=== PATIENT | female | born 1980 | race African-American/Black ===

== ENCOUNTER → 2016-03-28 | Emergency (ER) | payer SELFPAY ==
[~2016-03-28] VITALS: Ht 170.2 cm; Wt 75.7 kg
[~2016-03-28] MED LIST: COLACE100 MG ORAL; IBUPROFEN400 MG ORAL; Ketorolac 60mg Inj IM ONE; TYLENOL EXTRA500 MG ORAL
[2016-03-28 14:01] VITALS: BP 106/68
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
[2016-03-28 16:17] VITALS: BP 106/68
--- NOTE | 2016-03-30 09:35 | Diagnostic Imaging Report ---
Indication: PAIN Technique: Multiple views of the nasal bones Comparison: None Findings: No acute fractures. Nasal septum is intact. Included sinuses are grossly unremarkable. Impression: Negative
== END | disposition home or self-care (01) ==
LOC: EMR 14:30
DX: S00.33XA Contusion of nose, initial encounter (principal); K59.00 Constipation, unspecified; W22.8XXA Striking against or struck by other objects, initial encounter; Y92.9 Unspecified place or not applicable; Y99.8 Other external cause status
CPT/HCPCS: 70160; 96374; 99284

== ENCOUNTER 2016-05-30 16:20 | Emergency (ER) | payer SELFPAY ==
[~2016-05-30] VITALS: Ht 170.2 cm; Wt 75.7 kg
[~2016-05-30 16:20] MED LIST changes: -Ketorolac 60mg Inj IM ONE
[2016-05-30] MEDS ORDERED: Norco 5mg/325mg tab ORAL ONE (17:15)
[2016-05-30] MEDS ORDERED: ROBAXIN-750750 MG PO (18:37)
[2016-05-30] MEDS ORDERED: IBUPROFEN600 MG ORAL (18:37)
[2016-05-30 18:50] VITALS: BP 101/70
--- NOTE | 2016-05-31 09:58 | Diagnostic Imaging Report ---
Indication: PAIN Technique: Multiple views of the right ribs Comparison: None Findings: No acute fractures. No pneumothorax. Lungs and pleural spaces are clear. There are cholecystectomy clips Impression: Negative
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
== END 2016-05-30 18:50 | disposition home or self-care (01) ==
LOC: EMR 17:29
DX: M54.5 Low back pain (principal); R07.9 Chest pain, unspecified; T14.8 Other injury of unspecified body region; Z90.49 Acquired absence of other specified parts of digestive tract; V43.62XA Car passenger injured in collision with other type car in traffic accident, initial encounter; Y93.9 Activity, unspecified; Y92.410 Unspecified street and highway as the place of occurrence of the external cause
CPT/HCPCS: 99283

== ENCOUNTER 2017-01-15 20:11 | Emergency (ER) | payer OTHER ==
[~2017-01-15] VITALS: Ht 170.2 cm; Wt 81.6 kg
[~2017-01-15 20:11] MED LIST changes: +IBUPROFEN600 MG ORAL; +ROBAXIN-750750 MG PO
[2017-01-15 20:26] VITALS: BP 128/90
[2017-01-15] MEDS ORDERED: Ketorolac 60mg Inj IM ONE (20:30)
[2017-01-15] MEDS ORDERED: Tylenol #3 tab (300mg/30mg) ORAL ONE (20:30)
[2017-01-15] MEDS ORDERED: ACETAMINOPHEN-1 EAC1 ORAL (21:05)
[2017-01-15] MEDS ORDERED: IBUPROFEN800 MG ORAL (21:05)
--- NOTE | 2017-01-15 21:20 | Emergency Room Report ---
History of Present Illness General Chief Complaint: Chest Pain Source: Patient Present Illness HPI 36YOF walks in with pleuritic chest pain for 2-3 days Associated with recent URI symptoms No fever/chills, chest pain, SOB No asthma, COPD, CHF History of smoking marijuna No history of PE in self or family Allergies: Coded Allergies: No Known Allergies (Unverified , 03/28/16) Patient History Past Medical History: none Past Surgical History: none Pertinent Family History: none Social History: Reports: smoking, drug use Last Menstrual Period: 3 weeks ago Now: No Immunizations: UTD Reviewed Nursing Documentation: PMH: Agreed, PSxH: Agreed Nursing Documentation-PMH Past Medical History: No Stated History Review of Systems All Other Systems: negative except mentioned in HPI Physical Exam Vital Signs Date Time Temp Pulse Resp B/P (MAP) Pulse Ox O2 Delivery O2 Flow Rate FiO2 01/15/17 20:14 98.4 96 18 128/90 98 Room Air 01/15/17 20:26 98 Sp02 EP Interpretation: reviewed, normal General Appearance: normal inspection, well appearing, no apparent distress, alert, GCS 15, non-toxic Head: normocephalic, atraumatic Eyes: bilateral eye PERRL, bilateral eye EOMI ENT: normal ENT inspection, hearing grossly normal, normal voice Neck: normal inspection, full range of motion, supple, no bony tend Respiratory: normal inspection, lungs clear, normal breath sounds, no respiratory distress, no retraction, no wheezing, chest symmetrical, palpation of chest normal Cardiovascular #1: regular rate, rhythm, no edema Gastrointestinal: normal inspection, normal bowel sounds, non tender, soft, no guarding, no hernia Genitourinary: no CVA tenderness Musculoskeletal: normal inspection, back normal, normal range of motion, Elisabeth' s Sign negative Neurologic: normal inspection, alert, oriented x3, responsive, cheese tester III-XII nml as tested, speech normal Psychiatric: normal inspection, judgement/insight normal, mood/affect normal Skin: normal inspection, normal color, no rash Medical Decision Making Diagnostic Impression: Primary Impression: Chest pain Qualified Codes: R07.81 - Pleurodynia ER Course 36yof female with 2-3 days of pleuritic chest pain EKG does not demonstrate ischemia or pericarditis pattern Chest x-ray negative for pneumonia, pneumothorax Symptoms improved with IM Toradol and Tylenol with Codeine Unlikely ACS or PE given well appearance, stable vital signs, afebrile, and no CAD risk factors ER course: Patient has remained stable during ED stay. Patient is to be discharged to home. Prescriptions given are motrin, t#3 Patient is instructed to follow up with their primary care doctor within 5 days. Strict return precautions discussed with patient such as fever, chills, worsening/severe pain, nausea, vomiting, which may indicate severe illness. Patient verbalizes understanding and agrees with plan. Please note that this Emergency Department Report was dictated using [employer] intern technology software, occasionally this can lead to erroneous entry secondary to interpretation by the dictation equipment EKG Diagnostic Results Rate: normal Rhythm: NSR ST Segments: no acute changes ASA given to the pt in ED: No Chest X-Ray Diagnostic Results Chest X-Ray Diagnostic Results : Chest X-Ray Ordered: Yes # of Views/Limited/Complete: 1 View Indication: Chest Pain EP Interpretation: Yes Interpretation: no consolidation, no effusion, no pneumothorax, no acute cardiopulmonary disease Impression: No acute disease Electronically Signed by: Dr Abel Sarmiento MD Last Vital Signs Date Time Temp Pulse Resp B/P (MAP) Pulse Ox O2 Delivery O2 Flow Rate FiO2 01/15/17 20:26 96 18 Room Air 98 01/15/17 20:26 98.4 128/90 98 Status: improved Disposition: HOME, SELF-CARE Condition: Improved Scripts Acetaminophen With Codeine (T#3) (TYLENOL #3 TAB*) Y Tab 1 TAB ORAL Q8H for Severe Breakthru Pain (>7) for 7 Days, #20 TAB Prov: ABEL SARMIENTO M.D. 01/15/17 Ibuprofen* (MOTRIN*) 800 Mg Tablet 800 MG ORAL THREE TIMES A DAY for 7 Days, #30 TAB 0 Refills Prov: ABEL SARMIENTO M.D. 01/15/17 Referrals: PREFERRED [facility],REFERRING (PCP) Patient Instructions: Costochondritis, [id number] Additional Instructions: - Take motrin as needed up to 3x a day for chest wall pain - Take Tylenol #3 for severe pain - Followup with your doctor in 2-3 days if no improvement ABEL SARMIENTO M.D. Jan 15, 2017 21:20
[2017-01-15 21:25] VITALS: BP 128/90
--- NOTE | 2017-01-18 11:01 | Cardiology Report ---
APPROVED REPORT EKG Measurement Heart [id number] NV 112P [id number] Normal sinus rhythm Normal ECG
--- NOTE | 2017-01-18 11:02 | Diagnostic Imaging Report ---
Indication: SOB Technique: One view of the chest Comparison: none Findings: Lungs and pleural spaces are clear. Heart size is normal. Impression: No acute process
== END 2017-01-15 21:25 | disposition home or self-care (01) ==
LOC: EMR 20:48
DX: R07.81 Pleurodynia (principal); F17.200 Nicotine dependence, unspecified, uncomplicated; F19.10 Other psychoactive substance abuse, uncomplicated
CPT/HCPCS: 71010; 93005; 96372; 99284

== ENCOUNTER 2017-07-26 12:50 | Emergency (ER) | payer OTHER ==
[~2017-07-26] VITALS: Ht 170.2 cm; Wt 78.0 kg
[~2017-07-26 12:50] MED LIST changes: +ACETAMINOPHEN-1 EAC1 ORAL; +IBUPROFEN800 MG ORAL
[2017-07-26 13:00] VITALS: BP 110/74
[2017-07-26] MEDS ORDERED: NKM (13:01)
[2017-07-26] MEDS ORDERED: NORCO 5-325 TA1 EACH ORAL (13:17)
[2017-07-26] MEDS ORDERED: OMEPRAZOLE20 M2 ORAL (13:17)
[2017-07-26] MEDS ORDERED: BACTRIM DS TAB1 EAC1 ORAL (13:17)
--- NOTE | 2017-07-26 13:33 | Emergency Room Report ---
History of Present Illness General Chief Complaint: Skin Rash/Abscess Source: Patient Present Illness HPI Patient 36-year-old female presented after increased rash to her buttocks. Patient reported having increased the swelling and pain to the right butt cheek. This been present for several days. Patient denied any fever.The patient reports having the additionally some right upper abdominal pain. She denies any vomiting. She reports having a recent heavy alcohol use. She denies any hematemesis or bloody stools. Allergies: Coded Allergies: No Known Allergies (Unverified , 03/28/16) Patient History Past Medical History: see triage record Now: No Nursing Documentation-[facility] Past Medical History: No History, Except For Review of Systems All Other Systems: negative except mentioned in HPI Physical Exam Vital Signs Date Time Temp Pulse Resp B/P (MAP) Pulse Ox O2 Delivery O2 Flow Rate FiO2 07/26/17 12:54 97.6 84 19 110/74 98 Room Air 97.5 Sp02 EP Interpretation: reviewed, normal General Appearance: normal inspection, well appearing, no apparent distress, alert, GCS 15 Head: atraumatic ENT: normal ENT inspection, hearing grossly normal, normal voice Neck: normal inspection, full range of motion, supple, no bony tend Respiratory: normal inspection, lungs clear, normal breath sounds, no respiratory distress, no retraction, no wheezing Cardiovascular #1: regular rate, rhythm, no edema Gastrointestinal: normal inspection, normal bowel sounds, non tender, soft, no guarding, no hernia Genitourinary: no CVA tenderness Musculoskeletal: normal inspection, back normal, normal range of motion Neurologic: normal inspection, alert, oriented x3, responsive, glove stitcher III-XII nml as tested, speech normal Psychiatric: normal inspection, judgement/insight normal, mood/affect normal Skin: normal inspection, normal color, no rash Medical Decision Making Diagnostic Impression: Primary Impression: Infected insect bite of buttock Additional Impression: Gastritis without bleeding ER Course Patient presented for skin rash. Differential diagnosis included was not limited to abscess, cellulitis, folliculitis, Fourniere's gangrene, gonorrhea. Patient has a benign exam and does not appear to require any further imaging or laboratory testing at this time. The patient was given prescription for empiric treatment of likely staph infection. The patient was advised to have wound rechecked in 2 days. The patient was given prescription for pain medication. She is advised to follow-up with primary care physician for further evaluation.Patient presented for skin rash. The patient is advised to follow up with primary care doctor in 1-2 days. Patient is advised to return if any worsening condition or if any changes in status that are concerning. This report is dictated with [email or web address] systems planner software which may occasionally lead to discrepancies related to use of this software. Labs Test 07/26/17 13:25 Urine Color Yellow Urine Appearance Slightly cloudy Urine pH 5 (4.5-8.0) Urine Specific [place] 1.020 (1.005-1.035) Urine Protein 1+ (NEGATIVE) Urine Glucose (UA) Negative (NEGATIVE) Urine Ketones Negative (NEGATIVE) Urine Occult Blood 4+ (NEGATIVE) Urine Nitrite Negative (NEGATIVE) Urine Bilirubin Negative (NEGATIVE) Urine Urobilinogen Normal MG/DL (0.0-1.0) Urine Leukocyte Esterase Negative (NEGATIVE) Urine RBC 15-20 /HPF (0 - 2) Urine WBC 2-4 /HPF (0 - 2) Urine Squamous Epithelial Cells Many /LPF (NONE/OCC) Urine Bacteria Few /HPF (NONE) Urine HCG, Qualitative Negative (NEGATIVE) Last Vital Signs Date Time Temp Pulse Resp B/P (MAP) Pulse Ox O2 Delivery O2 Flow Rate FiO2 07/26/17 12:54 97.6 84 19 110/74 98 Room Air 97.5 Status: improved Disposition: HOME, SELF-CARE Condition: Stable Scripts Omeprazole (OMEPRAZOLE) 20 Mg Capsule.dr 20 MG ORAL DAILY, #14 CAP Prov: Eddie Enriquez MD 07/26/17 Trimethoprim/Sulfamethoxazole 160/800* (BACTRIM DS TABLET*) 1 Each Tablet 1 TAB ORAL Q12H, #14 TAB 0 Refills Prov: Eddie Enriquez MD 07/26/17 Hydrocodone Bit/Acetaminophen 5-325* (NORCO 5-325*) 1 Each Tablet 1 TAB ORAL Q6H PRN for For Pain, #10 TAB 0 Refills Prov: Eddie Enriquez MD 07/26/17 Patient Instructions: Staphylococcal Infection, Insect Bite Eddie Enriquez MD Jul 26, 2017 13:33
[2017-07-26 13:49] LABS: APPEARANCE,URINE SLIGHTLY CLOUDY; BILIRUBIN, URINE NEGATIVE (NEGATIVE); GLUCOSE, URINE (UA) NEGATIVE (NEGATIVE); KETONES,URINE NEGATIVE (NEGATIVE); NITRITE,URINE NEGATIVE (NEGATIVE); UROBILINOGEN,URINE NORMAL MG/DL (0.0-1.0)
[2017-07-26 13:53] LABS: COLOR,URINE YELLOW
[2017-07-26 13:54] LABS: PH,URINE 5 (4.5-8.0); PROTEIN,URINE 1+ (NEGATIVE)
[2017-07-26 13:55] LABS: LEUKOCYTE ESTERASE ,URINE NEGATIVE (NEGATIVE)
[2017-07-26 14:24] VITALS: BP 108/74
== END 2017-07-26 14:28 | disposition home or self-care (01) ==
LOC: EMR 13:53
DX: S30.860A Insect bite (nonvenomous) of lower back and pelvis, initial encounter (principal); L08.9 Local infection of the skin and subcutaneous tissue, unspecified; K29.70 Gastritis, unspecified, without bleeding; W57.XXXA Bitten or stung by nonvenomous insect and other nonvenomous arthropods, initial encounter; Y92.9 Unspecified place or not applicable
CPT/HCPCS: 81003; 81025; 99284

== ENCOUNTER 2017-12-04 17:53 | Emergency (ER) | payer OTHER ==
[~2017-12-04] VITALS: Ht 200.7 cm; Wt 82.6 kg
[~2017-12-04 17:53] MED LIST changes: +BACTRIM DS TAB1 EAC1 ORAL; +NKM; +NORCO 5-325 TA1 EACH ORAL; +OMEPRAZOLE20 M2 ORAL
[2017-12-04 18:08] VITALS: BP 109/67
[2017-12-04] MEDS ORDERED: TYLENOL EXTRA500 MG ORAL (18:30)
[2017-12-04] MEDS ORDERED: CEPHALEXIN500 MG ORAL (18:30)
[2017-12-04] MEDS ORDERED: BACTRIM DS TAB1 EAC1 ORAL (18:30)
--- NOTE | 2017-12-04 18:31 | Emergency Room Report ---
History of Present Illness General Chief Complaint: Skin Rash/Abscess Source: Patient Present Illness HPI 37-year-old female patient presents ER complaining of bump on her left buttock. Reports "I think I have another abscess". Reports history of similar symptoms in the past. Reports bump is been present for 3 days. Reports began draining today following a hydrogen peroxide bath. Denies fever, chest pain, shortness breath, vomiting. Denies pain with bowel movements. Denies pain with walking. Reports tenderness to palpation. Denies dysuria. Denies diarrhea or constipation. Allergies: Coded Allergies: No Known Allergies (Unverified , 03/28/16) Patient History Past Medical History: see triage record Reviewed Nursing Documentation: PMH: Agreed; PSxH: Agreed Nursing Documentation-PMH Past Medical History: No History, Except For Review of Systems All Other Systems: negative except mentioned in HPI Physical Exam Vital Signs Date Time Temp Pulse Resp B/P (MAP) Pulse Ox O2 Delivery O2 Flow Rate FiO2 12/04/17 18:03 98.4 83 18 109/67 98 Room Air Sp02 EP Interpretation: reviewed, normal General Appearance: well appearing, no apparent distress, alert, GCS 15, non- toxic Head: normocephalic, atraumatic Eyes: bilateral eye normal inspection, bilateral eye PERRL ENT: hearing grossly normal, normal pharynx, no angioedema, normal voice, uvula midline, moist mucus membranes Neck: full range of motion Respiratory: lungs clear, normal breath sounds, no rhonchi, no respiratory distress, no accessory muscle use, no wheezing, speaking full sentences Cardiovascular #1: regular rate, rhythm, no edema Musculoskeletal: back normal, digits/nails normal, gait/station normal, normal range of motion, non-tender Neurologic: alert, oriented x3, responsive, motor strength/tone normal, sensory intact Psychiatric: mood/affect normal Skin: other - left mid buttock: 1 cm abscess with drainage, overlying erythema and edema, indurated, pus draining, no red streaking Medical Decision Making PA Attestation Dr. Enriquez is my supervising Physician whom patient management has been discussed with. Diagnostic Impression: Primary Impression: Abscess ER Course Pt. presents to the ED c/o bump on left buttock for 3 days. Ddx considered but are not limited to rash, cellulitis, abscess, sebaceous cyst , carbuncle, folliculitis, fistula. Does not require imaging at this time. Vital signs: are WNL, pt. 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 Does not require I and D at this time. Wound cleaned and dressed. Provide patient with antibiotics and discharged home. Continue sitz baths. Take Tylenol for pain. ER precautions given. Follow-up with primary care provider in 2-3 days for wound check or return to the ER. DISCHARGE: -Rx provided for Keflex -Rx provided for Bactrim to cover for MRSA -Rx provided for Tylenol At this time pt. is stable for d/c to home. Patient is resting comfortably, in no acute distress, nontoxic appearing. Will provide printed patient care instructions and any necessary prescriptions. Care plan and follow up instructions have been discussed with the patient prior to discharge. Patient instructed to follow-up with primary care provider in 2 - 3 days for wound recheck. Patient questions asked and answered. Patient reports understanding and agreement to treatment plan. ER precautions given. Patient instructed to return to ER immediately for any new or worsening of symptoms including but not limited to fever, worsening of pain symptoms, worsening of erythema, red streaking. - Please note that this Emergency Department Report was dictated using [employer] technology software, occasionally this can lead to erroneous entry secondary to interpretation by the dictation equipment. Last Vital Signs Date Time Temp Pulse Resp B/P (MAP) Pulse Ox O2 Delivery O2 Flow Rate FiO2 12/04/17 18:08 98.4 83 18 109/67 98 Room Air Disposition: HOME, SELF-CARE Condition: Stable Scripts Trimethoprim/Sulfamethoxazole 160/800* (BACTRIM DS TABLET*) 1 Each Tablet 1 TAB ORAL TWICE A DAY for 7 Days, #14 TAB Prov: Obed Crocker P.A. 12/04/17 Acetaminophen* (TYLENOL EXTRA STRENGTH*) 500 Mg Tablet 500 MG ORAL Q8H PRN for Prn Headache/Temp > 101, #30 TAB 0 Refills Prov: Obed Crocker P.A. 12/04/17 Cephalexin* (KEFLEX*) 500 Mg Capsule 500 MG ORAL EVERY 12 HOURS, #14 CAP 0 Refills Prov: Obed Crocker P.A. 12/04/17 Patient Instructions: Abscess Additional Instructions: Followup with PCP or return to ER in 2-3 days for wound check. Take medications as instructed. Patient questions asked and answered. Apply warm compresses to affected area. SITZ baths. Keep wound clean and dry. ER precautions given. Return to ER for new or worsening of symptoms including but not limited to chest pain, SOB, red streaking, worsening of abscess, intractable vomiting, pain with bowel movements or walking. Obed Crocker Dec 04, 2017 18:31
[2017-12-04 18:37] VITALS: BP 109/67
== END 2017-12-04 18:40 | disposition home or self-care (01) ==
LOC: EMR 18:28
DX: L02.31 Cutaneous abscess of buttock (principal)
CPT/HCPCS: 99283

== ENCOUNTER 2017-12-29 18:03 | Emergency (ER) | payer OTHER ==
[~2017-12-29] VITALS: Ht 170.2 cm; Wt 81.6 kg
[~2017-12-29 18:03] MED LIST changes: +CEPHALEXIN500 MG ORAL
[2017-12-29 18:28] VITALS: BP 110/66
[2017-12-29] MEDS ORDERED: Mylanta II UD 30ml ORAL ONE (18:30)
[2017-12-29 18:31] LABS: APPEARANCE,URINE SLIGHTLY CLOUDY; BILIRUBIN, URINE 2+ (NEGATIVE); GLUCOSE, URINE (UA) NEGATIVE (NEGATIVE); KETONES,URINE NEGATIVE (NEGATIVE); LEUKOCYTE ESTERASE ,URINE 3+ (NEGATIVE); NITRITE,URINE POSITIVE (NEGATIVE); PH,URINE 6 (4.5-8.0); PROTEIN,URINE 1+ (NEGATIVE); UROBILINOGEN,URINE 8 MG/DL (0.0-1.0)
[2017-12-29 18:34] LABS: COLOR,URINE YELLOW
--- NOTE | 2017-12-29 18:51 | Emergency Room Report ---
History of Present Illness General Chief Complaint: Female Urogenital Problems Source: Patient Present Illness HPI 37 Yo Female presents to the ED c/o dysuria and bladder fullness with urgency x 5 days. Pt. has taken OTC AZO x 2 days without relief. pt. Denies and reports LMP was last week. pt. denies hematuria or frequency otherwise. Denies fevers, chills, nausea,vomiting, constipation or diarrhea. Pt. reports being really "gassy" since yesterday. Denies vaginal d/c, rashes or recent unprotected intercourse. Pt. reports recent abx use 1 month ago for abscess on her buttock. pt. denies itching. Allergies: Coded Allergies: No Known Allergies (Unverified , 03/28/16) Patient History Past Medical History: see triage record Past Surgical History: none Pertinent Family History: none Last Menstrual Period: LAST WEEK Now: No Reviewed Nursing Documentation: PMH: Agreed; PSxH: Agreed Nursing Documentation-PMH Past Medical History: No Stated History Review of Systems All Other Systems: negative except mentioned in HPI Physical Exam Vital Signs Date Time Temp Pulse Resp B/P (MAP) Pulse Ox O2 Delivery O2 Flow Rate FiO2 12/29/17 18:04 80.1 95 16 118/80 96 Room Air Sp02 EP Interpretation: reviewed, normal General Appearance: no apparent distress, alert, GCS 15, non-toxic Head: normocephalic, atraumatic Eyes: bilateral eye normal inspection, bilateral eye PERRL ENT: hearing grossly normal, normal voice Neck: full range of motion Respiratory: lungs clear, normal breath sounds, speaking full sentences Cardiovascular #1: regular rate, rhythm Gastrointestinal: normal bowel sounds, non tender, soft, non-distended, no guarding Rectal: deferred Genitourinary: normal inspection, no CVA tenderness, adnexa normal Musculoskeletal: back normal, gait/station normal, normal range of motion, non- tender Neurologic: alert, oriented x3, responsive, motor strength/tone normal, sensory intact, normal gait, speech normal, grossly normal Psychiatric: judgement/insight normal Skin: normal color, no rash, warm/dry, well hydrated Lymphatic: no adenopathy Medical Decision Making PA Attestation Dr. Valencia is my supervising Physician whom patient management has been discussed with. Diagnostic Impression: Primary Impression: UTI (urinary tract infection) Qualified Codes: N30.01 - Acute cystitis with hematuria Additional Impression: Trichomonal infection ER Course 37 Yo Female presents to the ED c/o dysuria and bladder fullness with urgency x 5 days. Pt. has taken OTC AZO x 2 days without relief. pt. Denies and reports LMP was last week. pt. denies hematuria or frequency otherwise. Denies fevers, chills, nausea,vomiting, constipation or diarrhea. Pt. reports being really "gassy" since yesterday. Denies vaginal d/c, rashes or recent unprotected intercourse. Pt. reports recent abx use 1 month ago for abscess on her buttock. pt. denies itching. Ddx considered but are not limited to UTi , Pyelo, STI, Stone, Cystitis Vital signs: are WNL, pt. is afebrile H&PE are most consistent with UTI ORDERS: - UA labs are attached - NITRITE POSITIVE + TRICHOMONAS ED INTERVENTIONS: -Dilcia Posada DISCHARGE: At this time pt. is stable for d/c to home. Will provide printed patient care instructions, and any necessary prescriptions. Care plan and follow up instructions have been discussed with the patient prior to discharge. Labs Test 12/29/17 18:25 Urine Color Yellow Urine Appearance Slightly cloudy Urine pH 6 (4.5-8.0) Urine Specific [place] 1.015 (1.005-1.035) Urine Protein 1+ (NEGATIVE) Urine Glucose (UA) Negative (NEGATIVE) Urine Ketones Negative (NEGATIVE) Urine Blood 3+ (NEGATIVE) Urine Nitrite Positive (NEGATIVE) Urine Bilirubin 2+ (NEGATIVE) Urine Ictotest Negative (NEGATIVE) Urine Urobilinogen 8 MG/DL (0.0-1.0) Urine Leukocyte Esterase 3+ (NEGATIVE) Urine RBC 10-15 /HPF (0 - 2) Urine WBC 20-30 /HPF (0 - 2) Urine Squamous Epithelial Cells Many /LPF (NONE/OCC) Urine Bacteria Many /HPF (NONE) Urine Trichomonas Moderate /HPF (NONE) Urine HCG, Qualitative Negative (NEGATIVE) Last Vital Signs Date Time Temp Pulse Resp B/P (MAP) Pulse Ox O2 Delivery O2 Flow Rate FiO2 12/29/17 18:28 98.4 81 16 110/66 100 Room Air Disposition: HOME, SELF-CARE Condition: Stable Scripts Metronidazole* (FLAGYL*) 500 Mg Tablet 500 MG ORAL BID for 5 Days, #10 TAB 0 Refills Prov: Amisha Pinto 12/29/17 Trimethoprim/Sulfamethoxazole 160/800* (BACTRIM DS TABLET*) 1 Each Tablet 1 TAB ORAL TWICE A DAY for 7 Days, #14 TAB Prov: Amisha Pinto 12/29/17 Referrals: [facility],REFERRING (PCP) Patient Instructions: Trichomonas Test, Urinary Tract Infection Additional Instructions: Take medications as directed. ! Do not drink alcohol while taking Flagyl/Metronidazole as this will cause a skin reaction. Follow up with a Primary Care Provider in 3-5 days, even if your symptoms have resolved. --Please review list of primary care clinics, if you do not already have a primary care provider Return sooner to ED if new symptoms occur, or current symptoms become worse. - Please note that this Emergency Department Report was dictated using [employer] photographer technology software, occasionally this can lead to erroneous entry secondary to interpretation by the dictation equipment. Amisha Pinto Dec 29, 2017 18:51
[2017-12-29] MEDS ORDERED: METRONIDAZOLE500 MG ORAL (19:01)
[2017-12-29] MEDS ORDERED: BACTRIM DS TAB1 EAC1 ORAL (19:01)
[2017-12-29 19:25] VITALS: BP 110/66
== END 2017-12-29 19:26 | disposition home or self-care (01) ==
LOC: EMR 18:25
DX: N39.0 Urinary tract infection, site not specified (principal); A59.9 Trichomoniasis, unspecified
CPT/HCPCS: 81003; 81025; 87086; 99283

== ENCOUNTER 2018-03-27 07:18 | Emergency (ER) | payer OTHER ==
[~2018-03-27] VITALS: Ht 170.2 cm; Wt 81.6 kg
[~2018-03-27 07:18] MED LIST changes: +METRONIDAZOLE500 MG ORAL
--- NOTE | 2018-03-27 07:48 | NUR ---
ED Nurse Note: Pt came into the Er w/ complaints of bodyaches, headache, coughing, and chills x 3 days. Pt has no fever upon arrival. Pt is complaining of generalized body pain and rating the pain a 7/10. A + O x4. Ambulatory. Skin warm to touch.
[2018-03-27 07:49] VITALS: BP 120/77
[2018-03-27] MEDS ORDERED: Acetaminophen 500mg (ES) tab ORAL ONE (08:00)
[2018-03-27] MEDS ORDERED: Ipratropium 0.02% Inh Soln 2.5ml UD HHN ONE (08:00)
[2018-03-27] MEDS: Albuterol ud Inhalation HHN SCH ×3 (08:04→08:30)
--- NOTE | 2018-03-27 08:06 | Emergency Room Report ---
History of Present Illness General Chief Complaint: Flu Like Symptoms Source: Patient Present Illness HPI Patient presents with 3 days of illness. She has a sore throat, muscle aches, cough with wheezing. She is producing green phlegm. She did not receive a flu vaccination. In addition she smokes. She's complaining about back pain also. Her back is aching and she has muscle aches. She denies any vomiting or diarrhea. She rates the pain 8/10 mainly in her body. She states she's never used an inhaler in the past. In addition she has an area under her left arm in the axilla. That's red and swollen. There is no drainage there. Her son has a sore throat. No nausea, vomiting, diarrhea, dysuria, headache, depression. Allergies: Coded Allergies: No Known Allergies (Unverified , 03/28/16) Patient History Past Medical History: see triage record Social History: Reports: smoking Social History Narrative With son and daughter Last Menstrual Period: 03/20/18 Reviewed Nursing Documentation: PMH: Agreed; PSxH: Agreed Nursing Documentation-PMH Past Medical History: No History, Except For Review of Systems All Other Systems: negative except mentioned in HPI Physical Exam Vital Signs Date Time Temp Pulse Resp B/P (MAP) Pulse Ox O2 Delivery O2 Flow Rate FiO2 03/27/18 07:31 97.7 70 18 121/76 98 Room Air 03/27/18 07:49 98 Sp02 EP Interpretation: reviewed, normal General Appearance: well appearing, no apparent distress, GCS 15 Head: normocephalic Eyes: bilateral eye normal inspection, bilateral eye PERRL ENT: moist mucus membranes, pharyngeal erythema Neck: supple Respiratory: wheezing - Posttussive Cardiovascular #1: regular rate, rhythm Cardiovascular #2: 2+ radial (R) Gastrointestinal: normal inspection, normal bowel sounds, non tender, no mass, non-distended Musculoskeletal: back normal, gait/station normal, normal range of motion Neurologic: alert, oriented x3, grossly normal Psychiatric: mood/affect normal Skin: normal inspection, warm/dry, other - Axillary erythema and nodularity without fluctuance Medical Decision Making Diagnostic Impression: Primary Impression: Asthmatic bronchitis Qualified Codes: J45.41 - Moderate persistent asthma with (acute) exacerbation Additional Impressions: Cellulitis, axillary fold Tobacco abuse ER Course Patient presents with sore throat, wheezing, productive cough. Differential includes asthmatic bronchitis, pneumonia, influenza amongst others. Based on her vital signs pneumonia is less likely. Influenza swab is indicated as well as albuterol. Patient will be given Tylenol also She also has an axillary if area of inflammation there is no fluctuance the area and antibiotics are indicated. Patient is improved after albuterol. Influenza negative. Patient improved with treatment in stable for outpatient observation and treatment. She was advised to stop smoking. Last Vital Signs Date Time Temp Pulse Resp B/P (MAP) Pulse Ox O2 Delivery O2 Flow Rate FiO2 03/27/18 10:00 98.0 87 20 122/75 99 Room Air 21 Status: improved Disposition: HOME, SELF-CARE Condition: Improved Scripts Dextromethorphan Hb/Doxylamine (ROBITUSSIN NIGHTTIME COUGH DM) 237 Ml Liquid 5 ML PO Q6HR PRN for For Cough, #90 ML Prov: Priyank Leung MD 03/27/18 Acetaminophen (Tylenol) 325 Mg Tablet 650 MG ORAL Q6H PRN for Prn Pain/Headache/Temp > 101, #20 TAB 0 Refills Prov: Priyank Leung MD 03/27/18 Albuterol Sulfate* (ALBUTEROL SULFATE MDI*) 8.5 Gm Hfa.aer.ad 2 PUFF INH Q6H, #1 EA 0 Refills Prov: Priyank Leung MD 03/27/18 Trimethoprim/Sulfamethoxazole 160/800* (BACTRIM DS TABLET*) 1 Each Tablet 1 TAB ORAL Q12H, #14 TAB 0 Refills Prov: Priyank Leung MD 03/27/18 Priyank Leung MD Mar 27, 2018 08:06
--- NOTE | 2018-03-27 08:09 | NUR ---
ED Nurse Note: RT at the bedside
[2018-03-27] MEDS ORDERED: Bactrim-DS 1 tab ORAL ONE (09:00)
[2018-03-27] MEDS ORDERED: BACTRIM DS TAB1 EAC1 ORAL (09:05)
[2018-03-27] MEDS ORDERED: ROBITUSSIN NIG237 ML PO (09:05)
[2018-03-27] MEDS ORDERED: TYLENOL325 MG ORAL (09:05)
[2018-03-27] MEDS ORDERED: ALBUTEROL SULF8.5 GM INH (09:05)
[2018-03-27 10:00] VITALS: BP 122/75
--- NOTE | 2018-03-27 10:01 | NUR ---
ER DISCHARGE NOTE: Patient is cleared to be discharged per ERMD, pt is aox4, on room air, with stable vital signs. pt was given dc and prescription instructions, pt was able to verbalize understanding, pt id band removed without complications. pt is able to ambulate with steady gait. pt took all belongings.
== END 2018-03-27 10:01 | disposition home or self-care (01) ==
LOC: EMR 08:15
DX: J45.41 Moderate persistent asthma with (acute) exacerbation (principal); L03.112 Cellulitis of left axilla; F17.210 Nicotine dependence, cigarettes, uncomplicated; M54.9 Dorsalgia, unspecified
CPT/HCPCS: 86710; 94640; 99284

== ENCOUNTER 2018-04-13 06:11 | Emergency (ER) | payer OTHER ==
[~2018-04-13] VITALS: Ht 170.2 cm; Wt 81.6 kg
[~2018-04-13 06:11] MED LIST changes: +ALBUTEROL SULF8.5 GM INH; +ROBITUSSIN NIG237 ML PO; +TYLENOL325 MG ORAL
[2018-04-13 06:23] VITALS: BP 160/73
--- NOTE | 2018-04-13 06:26 | NUR ---
ED Nurse Note: pt walked in due toothache x 2 days ago. pt states the pain is comming from the upper R back teeth. pt states she "feels like her tooth is poking out." all vital signs are within normal limits. no active bleeding noted. pt complans her pain has been lasting for 2 days.
[2018-04-13] MEDS ORDERED: Lidocaine 2% Visc 15ml soln ORAL ONE (06:30)
[2018-04-13] MEDS ORDERED: DiphenhydrAMINE 25mg/10ml Elixir ORAL ONE (06:30)
--- NOTE | 2018-04-13 06:36 | Emergency Room Report ---
History of Present Illness General Chief Complaint: Toothache Source: Patient Present Illness HPI Patient is is a 37-year-old female presented after increased per gingival pain. Patient was noted to have onset of symptoms 1 day ago. Patient stated that she had tried taking cloves as well as Tylenol without any relief. She denies any recent trauma. She reports having increased pain. Patient denies recent fever. She denies any headache. Patient had not been vomiting. Allergies: Coded Allergies: No Known Allergies (Unverified , 03/28/16) Patient History Past Medical History: see triage record Last Menstrual Period: still on Now: No Reviewed Nursing Documentation: PMH: Agreed; PSxH: Agreed Review of Systems All Other Systems: negative except mentioned in HPI Physical Exam Vital Signs Date Time Temp Pulse Resp B/P (MAP) Pulse Ox O2 Delivery O2 Flow Rate FiO2 04/13/18 06:16 99.7 89 12 160/73 99 Room Air General Appearance: well appearing, alert, GCS 15 Head: normocephalic, atraumatic ENT: hearing grossly normal, normal voice, other - upper gingiva near central incisor with small cystic area without erythema or fluctuance Neck: full range of motion, supple Respiratory: normal inspection, no respiratory distress, speaking full sentences Gastrointestinal: normal inspection Musculoskeletal: no calf tenderness Neurologic: normal inspection, alert, oriented x3, responsive, normal gait Psychiatric: mood/affect normal Skin: no rash Medical Decision Making Diagnostic Impression: Primary Impression: Gingival cyst ER Course Patient is a 37-year-old female presented after increased swelling to her upper gingiva. Differential diagnosis include was not limited to cyst, abscess, stomatitis, oral herpes among others. Patient has a benign exam and does not appear to require any further imaging or laboratory testing at this time. Patient appears to have a cystic lesion to her upper gingiva. Patient is noted to have markedly poor dentition with multiple areas of cracked broken teeth. These do not appear to be painful or acutely problematic to the patient. Patient was advised outpatient dental follow-up. Patient does not appear to require antibiotics at this time. She was given prescriptions for medications for symptomatic treatment.Patient appears to have agitation out of proportion to lesion. test was noted to be negative. A urine drug screen was positive for amphetamine as well as opiates and marijuana. Patient appears to be stable for outpatient management. Labs Test 04/13/18 06:40 Urine HCG, Qualitative Negative (NEGATIVE) Urine Opiates Screen Positive (NEGATIVE) Urine Barbiturates Screen Negative (NEGATIVE) Phencyclidine (PCP) Screen Negative (NEGATIVE) Urine Amphetamines Screen Positive (NEGATIVE) Urine Benzodiazepines Screen Negative (NEGATIVE) Urine Cocaine Screen Negative (NEGATIVE) Urine Marijuana (THC) Screen Positive (NEGATIVE) Last Vital Signs Date Time Temp Pulse Resp B/P (MAP) Pulse Ox O2 Delivery O2 Flow Rate FiO2 04/13/18 06:23 99.7 78 12 160/73 99 Room Air Status: improved Disposition: HOME, SELF-CARE Condition: Stable Scripts Lidocaine HCl 2% Viscous (Lidocaine HCl 2% Viscous) 100 Ml Solution 15 ML ORAL QID, #120 ML Prov: Eddie Enriquez MD 04/13/18 Diphenhydramine Hcl* (BENADRYL ALLERGY*) 12.5 Mg/5 Ml Liquid 12.5 MG ORAL Q6H PRN for Itching, #120 ML 0 Refills Prov: Eddie Enriquez MD 04/13/18 Eddie Enriquez MD Apr 13, 2018 06:36
[2018-04-13] MEDS ORDERED: BENADRYL A12.5 MG/5 ORAL (06:37)
[2018-04-13] MEDS ORDERED: LIDOCAINE VISC100 ML ORAL (06:37)
[2018-04-13] MEDS ORDERED: Ketorolac 60mg Inj IM ONE (07:15)
--- NOTE | 2018-04-13 07:35 | NUR ---
HAND-OFF: Report given to JAG GOMEZ.
--- NOTE | 2018-04-13 07:40 | NUR ---
ED Nurse Note: patient is in the bed, sleeping no acute disstress noticed. AAO x 4, VSS at this time.
[2018-04-13 07:56] VITALS: BP 45/75
--- NOTE | 2018-04-13 07:58 | NUR ---
ER DISCHARGE NOTE: Patient is cleared to be discharged per ERMD, pt is aox4, on room air, with stable vital signs. pt was given dc and prescription instructions, pt was able to verbalize understanding, pt id band and removed pt is able to ambulate with steady gait. pt took all belongings.
== END 2018-04-13 08:34 | disposition home or self-care (01) ==
LOC: EMR 06:33
DX: K09.0 Developmental odontogenic cysts (principal)
CPT/HCPCS: 80307; 81025; 96372; 99284

== ENCOUNTER 2018-12-14 00:48 | Emergency (ER) | payer OTHER ==
[~2018-12-14] VITALS: Ht 170.2 cm; Wt 86.2 kg
[~2018-12-14 00:48] MED LIST changes: +BENADRYL A12.5 MG/5 ORAL; +LIDOCAINE VISC100 ML ORAL
[2018-12-14 00:56] VITALS: BP 141/80
--- NOTE | 2018-12-14 00:56 | NUR ---
ED Nurse Note: pt walked in to ED C/P pain to upper gum area that started around 1900 today. pt is alert x4.
--- NOTE | 2018-12-14 01:10 | Emergency Room Report ---
History of Present Illness General Chief Complaint: Toothache Source: Patient Present Illness HPI Disclaimer: Please note that this report is being documented using [employer] technology. This can lead to erroneous entry secondary to incorrect interpretation by the dictating instrument. HPI: 38-year-old female with history of multiple dental fractures and dental caries presents for evaluation of mouth pain. Symptoms began acutely approximately 6 hours ago. Cannot recall an inciting incident. She notes pain in the gingiva near the central incisors. Denies any injury or trauma. No recent fever, chills. Denies pain in the jaw or trismus. No difficulty tolerating secretions. Denies shortness of breath, stridor, chest pain, nausea , vomiting. She notes some abdominal bloating recently has been taking medication for gas. Denies any diarrhea, dysuria or flank pain. She also requesting evaluation of a wound over her buttocks that is been present for several days. Denies drainage, fluctuance, bleeding. PMH: Dental caries PSH: Cholecystectomy Allergies: Denies Social Hx: Regular tobacco use, THC use, former ecstasy use Allergies: Coded Allergies: No Known Allergies (Unverified , 03/28/16) Patient History Last Menstrual Period: 11/19/18 Now: No Nursing Documentation-PMH Past Medical History: No History, Except For Review of Systems All Other Systems: negative except mentioned in HPI Physical Exam Vital Signs Date Time Temp Pulse Resp B/P (MAP) Pulse Ox O2 Delivery O2 Flow Rate FiO2 12/14/18 00:52 98.2 97 18 143/79 (100) 97 Room Air General: Awake and alert, appears uncomfortable HEENT: NC/AT. EOMI. multiple fractured molars and dental caries. There is no periapical abscess visible, no tenderness on percussion of the incisors or canines. There is tenderness over the hard palate without obvious area of erythema, edema, fluctuance or breakdown. No ulcers or injuries appreciated. Resp: Normal work of breathing Abd: Soft, nontender, nondistended, no peritoneal signs Skin: Intact. No abrasions, laceration or rash over the exposed skin. There is a papule over the left buttock without fluctuance, edema, erythema or drainage. MSK: Normal tone and bulk. Moving all extremities. No obvious deformity. Neuro: Awake and alert. Mentating appropriately Medical Decision Making Diagnostic Impression: Primary Impression: Pain of gingiva ER Course 38-year-old female presents for evaluation of gingival pain and for evaluation of a skin lesion on her buttocks and abdominal bloating. She is uncomfortable appearing however rapidly improved after application of ice to the right wrist. I do not see any lesions or breakdown over the hard palate where the patient' s tenderness is and I see no evidence of periapical abscess or tooth fracture in that area. Will treat with Toradol and viscous lidocaine. The small papule on her buttock appears to be a pimple or ingrown hair but there is no evidence of deep space infection or abscess. The patient's belly exam is benign and she has no systemic symptoms of infection or significant pathology. Patient will be discharged to follow-up with dentistry. Discussed reasons to follow-up with her PMD and reasons to return to the emergency department. She understands and agrees with the treatment plan. Last Vital Signs Date Time Temp Pulse Resp B/P (MAP) Pulse Ox O2 Delivery O2 Flow Rate FiO2 12/14/18 00:52 98.2 97 18 143/79 (100) 97 Room Air Scripts Ibuprofen* (MOTRIN*) 600 Mg Tablet 600 MG ORAL Q8H PRN for For Pain, #30 TAB 0 Refills Prov: Carson Moraes MD 12/14/18 Lidocaine HCl 2% Viscous (Lidocaine HCl 2% Viscous) 100 Ml Solution 15 ML ORAL QID for 5 Days, #100 ML Prov: Carson Moraes MD 12/14/18 Carson Moraes MD Dec 14, 2018 01:10
[2018-12-14] MEDS ORDERED: Ketorolac 30mg Inj IM ONE (01:15)
[2018-12-14] MEDS ORDERED: Lidocaine 2% Visc 15ml soln ORAL ONE (01:15)
[2018-12-14] MEDS ORDERED: ACETAMINOPHEN-1 EAC1 ORAL (01:29)
[2018-12-14] MEDS ORDERED: LIDOCAINE VISC100 ML ORAL (01:31)
[2018-12-14] MEDS ORDERED: IBUPROFEN600 MG ORAL (01:31)
[2018-12-14 01:41] VITALS: BP 132/84
== END 2018-12-14 01:41 | disposition home or self-care (01) ==
LOC: EMR 01:12
DX: K08.89 Other specified disorders of teeth and supporting structures (principal); Z90.49 Acquired absence of other specified parts of digestive tract; L98.9 Disorder of the skin and subcutaneous tissue, unspecified
CPT/HCPCS: 96372; J1885; Z7502; 99283